=== PATIENT | male | born 1955 | race Hispanic/Latino ===

== ENCOUNTER 2020-11-27 07:29 | Outpatient (CLI) | payer BC | END 2020-11-27 07:30 | disposition home or self-care (01) | LOC: BICMRI 07:29 | PROVIDERS: ATTEND Orthopaedic Surgery | DX: M75.102 Unspecified rotator cuff tear or rupture of left shoulder, not specified as traumatic (principal); M19.012 Primary osteoarthritis, left shoulder ==

== ENCOUNTER 2021-01-01 14:21 | Outpatient (CLI) | payer BC ==
[2021-01-01 15:54] LABS: #Monocytes 0.3 10x3/uL (0.0-1.1); #Neutrophils 2.8 10x3/uL (1.5-8.4); %Basophils 0.6 % (0.0-2.0); %Eosinophils 21.2 % (0.0-6.0); %Lymphocytes 14.5 % (18.0-47.0); %Monocytes 6.3 % (0.0-10.0); %Neutrophils 57.2 % (40.0-75.0); Hemoglobin 12.8 g/dL (13.5-17.5); Mean Corpuscular HGB CONC 32.2 g/dL (32.0-36.0); Mean Corpuscular Hemoglobin 29.5 pg (27.0-33.0); Mean Corpuscular Volume 91.5 fl (81.2-95.1); Mean Platelet Volume 11.4 fl (7.4-10.4); Platelet Count 243 10x3/uL (150-450); RBC Distribution Width 11.9 % (11.5-14.5); Red Blood Cell (RBC) Count 4.34 10x6/uL (4.32-5.72); White Blood Cell (WBC) Count 4.9 10x3/uL (3.5-10.5)
[2021-01-02 12:00] LABS: SARS-CoV-2 PCR by NAA Not Detected (NotDetected)
== END 2021-01-01 14:22 | disposition home or self-care (01) ==
LOC: LABBT 14:21
PROVIDERS: ATTEND Orthopaedic Surgery Hand Surgery
DX: Z01.818 Encounter for other preprocedural examination (principal); M72.0 Palmar fascial fibromatosis [Dupuytren]; Z20.822 Contact with and (suspected) exposure to COVID-19
CPT/HCPCS: 85025; 93005; 93010; U0003; U0005

== ENCOUNTER 2021-01-06 12:50 | Day surgery (SDC) | payer BC ==
[2021-01-03 13:57] VITALS: BMI 27.3
[2021-01-06] MEDS ORDERED: ceFAZolin 2 GM/DEX 5% 100 ML BAG ONE (13:45)
[2021-01-06] MEDS ORDERED: Insulin Regular 300 UNITS/3 ML VIAL ONE (13:49)
[2021-01-06] MEDS ORDERED: Collagenase Clostridium Hist. 0.9 MG VIAL FS SCH (14:15)
[2021-01-06] MEDS ORDERED: ceFAZolin Sodium/D5W 2 GM in Premix Bag 1 BAG IVPB SCH (14:15)
[2021-01-06] MEDS ORDERED: Collagenase Clostridium Hist. 0.9 MG VIAL ONE (14:15)
[2021-01-06] MEDS ORDERED: PROPOFOL 20 ML ONE (15:13)
[2021-01-06] MEDS ORDERED: Midazolam HCl 2 mg/2 ml Vial ONE (15:27)
[2021-01-06] MEDS ORDERED: Lidocaine 1% PF 5 ML VIAL ONE (15:28)
[2021-01-06] MEDS ORDERED: PROPOFOL 200 MG/20 ML VIAL ONE (15:28)
[2021-01-06] MEDS ORDERED: Fentanyl 100 MCG/2 ML VIAL ONE (15:32)
[2021-01-06] MEDS ORDERED: Ketorolac Tromethamine 30 MG/ML VIAL ONE (16:51)
== END 2021-01-06 17:15 | disposition home or self-care (01) ==
LOC: SDC 12:50
PROVIDERS: ATTEND Orthopaedic Surgery Hand Surgery
PROC: 3E013TZ Introduction of Destructive Agent into Subcutaneous Tissue, Percutaneous Approach (ICD-10-PCS; principal; 2021-01-06)
DX: M72.0 Palmar fascial fibromatosis [Dupuytren] (principal); E11.42 Type 2 diabetes mellitus with diabetic polyneuropathy; E78.5 Hyperlipidemia, unspecified; I10 Essential (primary) hypertension; F17.210 Nicotine dependence, cigarettes, uncomplicated; Z79.84 Long term (current) use of oral hypoglycemic drugs; Z79.899 Other long term (current) drug therapy
CPT/HCPCS: 36416; J0775; J1815; J1885; J2250; J2704; J3010